=== PATIENT | female | born 1990 | race Two or more races ===

== ENCOUNTER 2024-09-25 18:37 | Emergency (ER) | payer OTHER ==
[~2024-09-25] VITALS: Ht 165.1 cm; Wt 54.4 kg
[2024-09-25] MEDS ORDERED: KETOROLAC TROMETHAMINE INJ 30 MG/ML VIAL ONE (19:07)
[2024-09-25] MEDS: KETOROLAC TROMETHAMINE INJ 30 MG/ML VIAL IM ONE (19:14)
[2024-09-25 21:36] VITALS: BP 110/71; TEMP 98; O2SAT 98
== END 2024-09-25 21:36 | disposition home or self-care (01) ==
LOC: ER 18:37
DX: M79.672 Pain in left foot (principal)
CPT/HCPCS: 99283; 96372; 73630; J1885